=== PATIENT | male | born 1985 | race American Indian/Alaskan Native ===

== ENCOUNTER 2018-11-11 09:38 | Emergency (ER) | payer SELFPAY ==
[2018-11-11 09:48] VITALS: BP 137/85
--- NOTE | 2018-11-11 10:43 | Emergency Department Report ---
[place] [facility] [facility] Chief Complaint: Laceration/Recheck/Suture Stated Complaint: R THUMB INJURY Time Seen by Provider: 11/11/18 10:21 ED Review of Systems ROS: Stated complaint: R THUMB INJURY Other details as noted in HPI ED Past Medical Hx - Past Medical History Previous Medical History?: No - Surgical History Additional Surgical History: shoulder, acl - Social History Smoking Status: Current Some Day Smoker Substance Use Type: Marijuana - Medications Home Medications: Home Medications Medication Instructions Recorded Confirmed Last Taken Type Ibuprofen [Motrin] 800 mg PO Q8HR PRN #15 tablet 11/11/18 Unknown Rx Laceration Physical Exam - Exam General: Vital signs noted. No distress. Alert and acting appropriately. ED Course Vital Signs 11/11/18 09:46 Temperature 98.4 F Pulse Rate 68 Respiratory 19 Rate Blood Pressure 137/85 [Left] O2 Sat by Pulse 96 Oximetry Critical care attestation.: If time is entered above; I have spent that time in minutes in the direct care of this critically ill patient, excluding procedure time. ED Disposition Clinical Impression: Laceration of thumb Disposition: DC-01 TO HOME OR SELFCARE Is pt being admited?: No Does the pt Need Aspirin: No Condition: Stable Prescriptions: Ibuprofen [Motrin] 800 mg PO Q8HR PRN #15 tablet PRN Reason: Pain , Severe (7-10) Referrals: MAHAMED HANNA MD [Primary Care Provider] - 3-5 Days
[2018-11-11] MEDS ORDERED: TRIPLE ANTIBIOTIC TP ONE (10:49)
== END 2018-11-11 11:30 | disposition home or self-care (01) ==
LOC: ED 09:38
DX: S61.011A Laceration without foreign body of right thumb without damage to nail, initial encounter (principal); X58.XXXA Exposure to other specified factors, initial encounter; Y93.9 Activity, unspecified; Y92.89 Other specified places as the place of occurrence of the external cause; Y99.8 Other external cause status
CPT/HCPCS: 99282; A6250